=== PATIENT | female | born 1955 | race Two or more races ===

== ENCOUNTER 2018-09-12 11:10 | Outpatient (CLI) | payer OTHER | END 2018-09-12 11:21 | disposition home or self-care (01) | LOC: RAD 501 11:10 | DX: J44.1 Chronic obstructive pulmonary disease with (acute) exacerbation (principal) ==

== ENCOUNTER 2018-09-27 08:43 | Outpatient (CLI) | payer OTHER | END 2018-09-27 10:32 | disposition home or self-care (01) | LOC: LAB 08:43 | DX: D50.0 Iron deficiency anemia secondary to blood loss (chronic) (principal); E11.69 Type 2 diabetes mellitus with other specified complication; E78.00 Pure hypercholesterolemia, unspecified; E03.8 Other specified hypothyroidism; N39.0 Urinary tract infection, site not specified; Z12.11 Encounter for screening for malignant neoplasm of colon; K62.5 Hemorrhage of anus and rectum; R10.9 Unspecified abdominal pain; E55.9 Vitamin D deficiency, unspecified; E53.8 Deficiency of other specified B group vitamins ==

== ENCOUNTER 2018-09-27 11:24 | Outpatient (CLI) | payer OTHER | END 2018-09-27 11:28 | disposition home or self-care (01) | LOC: MAMO-SONO 11:24 | DX: N60.09 Solitary cyst of unspecified breast (principal); N63.10 Unspecified lump in the right breast, unspecified quadrant; N63.20 Unspecified lump in the left breast, unspecified quadrant; Z12.31 Encounter for screening mammogram for malignant neoplasm of breast ==

== ENCOUNTER → 2018-09-27 | Outpatient (CLI) | payer OTHER | END | disposition home or self-care (01) | LOC: NUCLEAR 13:00 | DX: M81.0 Age-related osteoporosis without current pathological fracture (principal) ==

== ENCOUNTER 2018-09-28 14:21 | Outpatient (CLI) | payer OTHER | END 2018-09-28 15:39 | disposition home or self-care (01) | LOC: LAB 14:21 | DX: D50.0 Iron deficiency anemia secondary to blood loss (chronic) (principal); E11.69 Type 2 diabetes mellitus with other specified complication; E78.00 Pure hypercholesterolemia, unspecified; E03.8 Other specified hypothyroidism; N39.0 Urinary tract infection, site not specified; Z12.11 Encounter for screening for malignant neoplasm of colon; K62.5 Hemorrhage of anus and rectum; R10.9 Unspecified abdominal pain; E55.9 Vitamin D deficiency, unspecified; E53.8 Deficiency of other specified B group vitamins ==

== ENCOUNTER 2018-10-06 15:14 | Outpatient (CLI) | payer OTHER | END 2018-10-06 15:21 | disposition home or self-care (01) | LOC: LAB 15:14 | DX: N20.0 Calculus of kidney (principal); Z51.81 Encounter for therapeutic drug level monitoring ==

== ENCOUNTER 2018-10-10 07:10 | Outpatient (CLI) | payer OTHER | END 2018-10-10 17:00 | disposition home or self-care (01) | LOC: MRI 07:10 | DX: R41.3 Other amnesia (principal) | CPT/HCPCS: 70553 ==

== ENCOUNTER 2018-10-24 07:49 | Outpatient (CLI) | payer OTHER | END 2018-10-24 17:00 | disposition home or self-care (01) | LOC: SONOGRAMA 07:49 → MAMO-SONO 08:15 → SONOGRAMA 17:00 | DX: M54.5 Low back pain (principal); E04.1 Nontoxic single thyroid nodule ==

== ENCOUNTER 2018-10-31 08:17 | Outpatient (CLI) | payer OTHER | END 2018-10-31 08:34 | disposition home or self-care (01) | LOC: LAB 08:17 | DX: E03.8 Other specified hypothyroidism (principal); R41.89 Other symptoms and signs involving cognitive functions and awareness; R41.3 Other amnesia; F03.90 Unspecified dementia, unspecified severity, without behavioral disturbance, psychotic disturbance, mood disturbance, and anxiety ==

== ENCOUNTER 2018-11-01 11:31 | Outpatient (CLI) | payer OTHER | END 2018-11-01 13:56 | disposition home or self-care (01) | LOC: NUCLEAR 11:31 | DX: M81.0 Age-related osteoporosis without current pathological fracture (principal) ==

== ENCOUNTER 2018-11-11 18:00 | Emergency (ER) | payer OTHER ==
[~2018-11-11] VITALS: Ht 167.6 cm; Wt 83.9 kg
[2018-11-11] MEDS ORDERED: PREVACID30 M1 (18:16)
== END 2018-11-11 22:44 | disposition home or self-care (01) ==
LOC: ER 18:00
DX: K29.70 Gastritis, unspecified, without bleeding (principal); R11.11 Vomiting without nausea; E86.0 Dehydration

== ENCOUNTER 2019-02-09 08:11 | Outpatient (CLI) | payer OTHER ==
[~2019-02-09 08:11] MED LIST: PREVACID30 M1
== END 2019-02-09 13:18 | disposition home or self-care (01) ==
LOC: SONOGRAMA 08:11
DX: E04.2 Nontoxic multinodular goiter (principal)

== ENCOUNTER 2019-02-10 10:26 | Outpatient (CLI) | payer OTHER | END 2019-02-10 10:29 | disposition home or self-care (01) | LOC: MRI 10:26 | DX: M51.26 Other intervertebral disc displacement, lumbar region (principal); M51.36 Other intervertebral disc degeneration, lumbar region | CPT/HCPCS: 72148 ==

== ENCOUNTER 2019-07-08 11:28 | Inpatient (IN) | payer OTHER ==
[~2019-07-08] VITALS: Ht 167.6 cm; Wt 83.9 kg
[2019-07-08] MEDS ORDERED: NABUMETONE750 MG (11:55)
--- NOTE | 2019-07-08 12:03 | NUR ---
PTE ALERTA Y ORIENTADA X 3 ESFERAS, REFIERE VOMITOS DESDE COLE EN LA TARDE, LUEGO DE ESTAR EN TOMANDO MEDICAMENTO EL CUAL NO RECUERDA EL NOMBRE, APROXIMADAMENTE 6 EPISODIOS. AL MOMENTO DE TRIAGE PRESENTA 2 VOMITOS COFFEE GROUND. SE UBICA EN AREA DE OBSERVACION.
--- NOTE | 2019-07-08 13:43 | NUR ---
PACIENTE ALERTA Y ORIENTADA EN LAS AMILCAR ESFERAS, SE DEQUAN MUESTRAS DE VIGNESH EN ANTEBRAZO DERECHO BAJO MEDIDAS ASEPTICAS, SE ADMNISTRAN MEDICAMENTOS ETHAN ORDEN MEDICA, PACIENTE ORIENTADA SOBRE PROCEDIMIENTOS Y MEDICACION VERBALIZA ENTENDER.
--- NOTE | 2019-07-08 15:35 | NUR ---
SE RECIBE PTE ALERTA Y ORIENTADA EN LAS 3 ESFERAS EN CAMA CON BARANDAS ELEVADAS TIMBRE ACCESIBLE. BUEN PATRON RESPIRATORIO. RECIBIENDO IV'S 0.9NSS BAJANDO A 100ML/HR POR VENOPUNCION EN BRAZO DERECHO AREA SHLOMO DE EDEMA Y ERITEMA. PENDIENTE CONSULTA CON DR.ESTEBAN LOPEZ. SE MANTIENE BAJO OBSERVACION POR CAMBIOS.
--- NOTE | 2019-07-08 20:32 | NUR ---
SE ORIENTA AL PACIENTE SOBRE MUESTRAS A SER COLECTADAS ETHAN ORDEN MEDICA. PACIENTE REFIERE ENTENDER. MISS. ROSANNA SCHMID, PROCEEDE A COLECTAR LAS MUESTRAS UTILIZANDO MEDIDAS ASEPTICAS. MUESTRAS SON ENVIADAS AL LABORATORIO.
[2019-07-12] MEDS ORDERED: CARAFATE1 GM PO (17:56)
[2019-07-12] MEDS ORDERED: PROTONIX40 MG PO (17:57)
== END 2019-07-12 18:56 | disposition home or self-care (01) | DRG 378 ==
LOC: ER 11:28 → SURH 20:13
PROVIDERS: ADMIT Internal Medicine
PROC: 0DH67UZ Insertion of Feeding Device into Stomach, Via Natural or Artificial Opening (ICD-10-PCS; 2019-07-08)
PROC: 3E0G76Z Introduction of Nutritional Substance into Upper GI, Via Natural or Artificial Opening (ICD-10-PCS; 2019-07-08)
PROC: 0DJ08ZZ Inspection of Upper Intestinal Tract, Via Natural or Artificial Opening Endoscopic (ICD-10-PCS; principal; 2019-07-11)
DX: K25.0 Acute gastric ulcer with hemorrhage (principal); E44.0 Moderate protein-calorie malnutrition; K92.0 Hematemesis; E86.0 Dehydration; E87.8 Other disorders of electrolyte and fluid balance, not elsewhere classified

== ENCOUNTER 2019-08-15 08:43 | Outpatient (CLI) | payer OTHER ==
[~2019-08-15 08:43] MED LIST changes: +CARAFATE1 GM PO; +NABUMETONE750 MG; +PROTONIX40 MG PO
== END 2019-08-15 08:48 | disposition home or self-care (01) ==
LOC: LAB 08:43
DX: D64.89 Other specified anemias (principal); I10 Essential (primary) hypertension; E11.9 Type 2 diabetes mellitus without complications; E78.00 Pure hypercholesterolemia, unspecified; N39.0 Urinary tract infection, site not specified; E03.8 Other specified hypothyroidism; E55.9 Vitamin D deficiency, unspecified; R19.5 Other fecal abnormalities

== ENCOUNTER → 2019-11-13 08:37 | Outpatient (CLI) | payer OTHER | END | disposition home or self-care (01) | LOC: LAB 08:37 | DX: D64.89 Other specified anemias (principal); I10 Essential (primary) hypertension; E11.9 Type 2 diabetes mellitus without complications; E78.00 Pure hypercholesterolemia, unspecified; N39.0 Urinary tract infection, site not specified; E03.8 Other specified hypothyroidism ==

== ENCOUNTER 2019-12-14 10:17 | Outpatient (CLI) | payer OTHER | END 2019-12-14 10:22 | disposition home or self-care (01) | LOC: SONOGRAMA 10:17 | PROVIDERS: ATTEND Internal Medicine | DX: E04.2 Nontoxic multinodular goiter (principal) ==

== ENCOUNTER → 2020-01-18 08:26 | Outpatient (CLI) | payer OTHER | END | disposition home or self-care (01) | LOC: MRI 08-10 11:15 → LAB 08:26 | DX: G60.3 Idiopathic progressive neuropathy (principal); M54.16 Radiculopathy, lumbar region ==

== ENCOUNTER 2020-01-24 10:44 | Outpatient (CLI) | payer OTHER | END 2020-01-24 10:53 | disposition home or self-care (01) | LOC: NUCLEAR 10:44 | PROVIDERS: ATTEND Internal Medicine | DX: I87.2 Venous insufficiency (chronic) (peripheral) (principal); I73.9 Peripheral vascular disease, unspecified ==

== ENCOUNTER 2020-01-31 09:17 | Outpatient (CLI) | payer OTHER | END 2020-01-31 10:19 | disposition home or self-care (01) | LOC: LAB 09:17 | PROVIDERS: ATTEND Obstetrics & Gynecology | DX: N39.0 Urinary tract infection, site not specified (principal) ==

== ENCOUNTER 2020-02-29 08:43 | Outpatient (CLI) | payer OTHER | END 2020-02-29 08:49 | disposition home or self-care (01) | LOC: SONOGRAMA 08:43 | PROVIDERS: ATTEND Pathology Anatomic Pathology & Clinical Pathology | DX: E04.2 Nontoxic multinodular goiter (principal) ==

== ENCOUNTER → 2020-05-21 | Outpatient (CLI) | payer OTHER | END | disposition home or self-care (01) | LOC: OFIC 805 10:15 | PROVIDERS: ATTEND Otolaryngology | DX: L29.8 Other pruritus (principal); H61.23 Impacted cerumen, bilateral; H90.41 Sensorineural hearing loss, unilateral, right ear, with unrestricted hearing on the contralateral side ==

== ENCOUNTER 2020-08-28 09:16 | Outpatient (CLI) | payer OTHER | END 2020-08-28 09:33 | disposition home or self-care (01) | LOC: LAB 09:16 | PROVIDERS: ATTEND Internal Medicine | DX: N39.0 Urinary tract infection, site not specified (principal); K21.9 Gastro-esophageal reflux disease without esophagitis; D50.0 Iron deficiency anemia secondary to blood loss (chronic); E78.00 Pure hypercholesterolemia, unspecified; K27.4 Chronic or unspecified peptic ulcer, site unspecified, with hemorrhage; M51.06 Intervertebral disc disorders with myelopathy, lumbar region; Z68.29 Body mass index [BMI] 29.0-29.9, adult; E04.2 Nontoxic multinodular goiter; I11.9 Hypertensive heart disease without heart failure; M54.5 Low back pain ==

== ENCOUNTER 2020-08-29 11:48 | Outpatient (CLI) | payer OTHER | END 2020-08-29 12:01 | disposition home or self-care (01) | LOC: LAB 11:48 | PROVIDERS: ATTEND Internal Medicine | DX: R19.5 Other fecal abnormalities (principal); Z12.11 Encounter for screening for malignant neoplasm of colon; E11.69 Type 2 diabetes mellitus with other specified complication ==

== ENCOUNTER 2021-07-01 10:13 | Outpatient (CLI) | payer OTHER | END 2021-07-01 14:37 | disposition home or self-care (01) | LOC: LAB 10:13 | DX: R41.89 Other symptoms and signs involving cognitive functions and awareness (principal); R41.3 Other amnesia; E03.8 Other specified hypothyroidism; F03.90 Unspecified dementia, unspecified severity, without behavioral disturbance, psychotic disturbance, mood disturbance, and anxiety ==

== ENCOUNTER 2022-01-29 09:32 | Outpatient (CLI) | payer OTHER | END 2022-01-29 09:36 | disposition home or self-care (01) | LOC: LAB 09:32 | DX: E53.8 Deficiency of other specified B group vitamins (principal) ==

== ENCOUNTER 2023-05-11 07:10 | Outpatient (CLI) | payer OTHER | END 2023-05-11 07:17 | disposition home or self-care (01) | LOC: NUCLEAR 07:10 | PROVIDERS: ATTEND Internal Medicine | DX: I25.118 Atherosclerotic heart disease of native coronary artery with other forms of angina pectoris (principal); R07.9 Chest pain, unspecified | CPT/HCPCS: 78452; 93017; A9500; J0153 ==

== ENCOUNTER 2023-07-30 14:20 | Outpatient (CLI) | payer OTHER | END 2023-07-30 14:24 | disposition home or self-care (01) | LOC: SONOGRAMA 14:20 | PROVIDERS: ATTEND Internal Medicine | DX: D37.030 Neoplasm of uncertain behavior of the parotid salivary glands (principal) ==

== ENCOUNTER 2023-08-11 14:32 | Outpatient (CLI) | payer OTHER ==
[2023-08-11 15:41] LABS: ALBUMIN 3.9 gm/dL (3.4-5.0); CALCIUM 8.9 mg/dL (8.5-10.1); CREATININE SERUM 0.88 mg/dL (0.55-1.02); GFR 63.71; PHOSPHOROUS 3.2 mg/dL (2.5-4.9); POTASSIUM 4.04 mEq/L (3.5-5.1)
== END 2023-08-11 14:45 | disposition home or self-care (01) ==
LOC: LAB 14:32
PROVIDERS: ATTEND Radiology Diagnostic Radiology
DX: P11 Other birth injuries to central nervous system (principal)

== ENCOUNTER 2023-08-12 09:45 | Outpatient (CLI) | payer OTHER | END 2023-08-12 09:55 | disposition home or self-care (01) | LOC: TOM 09:45 | PROVIDERS: ATTEND Otolaryngology | DX: D11.0 Benign neoplasm of parotid gland (principal) | CPT/HCPCS: 70491; Q9965 ==

== ENCOUNTER 2023-08-23 18:18 | Emergency (ER) | payer OTHER ==
[~2023-08-23] VITALS: Ht 165.1 cm; Wt 83.9 kg
[2023-08-23] MEDS ORDERED: MYRBETRIQ50 MG PO (18:29)
[2023-08-23] MEDS ORDERED: DULOXETINE HCL40 MG (18:29)
[2023-08-23] MEDS ORDERED: TROSPIUM CHLORI20 MG PO (18:30)
[2023-08-23] MEDS ORDERED: CRESTOR10 MG PO (18:30)
[2023-08-23] MEDS ORDERED: GENTAMICIN SULFATE 0.15 MG/DR DROPS 5ML OP STA (19:04)
[2023-08-23] MEDS ORDERED: TETRACAINE HCL 20 DR/ML DROPS OP STA (19:04)
== END 2023-08-23 19:27 | disposition home or self-care (01) ==
LOC: ER 18:18
DX: H11.31 Conjunctival hemorrhage, right eye (principal)

== ENCOUNTER 2023-09-03 10:57 | Outpatient (CLI) | payer OTHER ==
[~2023-09-03 10:57] MED LIST changes: +CRESTOR10 MG PO; +DULOXETINE HCL40 MG; +MYRBETRIQ50 MG PO; +TROSPIUM CHLORI20 MG PO
[2023-09-03 11:59] LABS: HEMATOCRIT 35.1 % (36.0-45.00); HEMOGLOBIN 12.1 g/dL (12.0-15.00); MEAN CORPUSCULAR HEMOGLOBIN 30.6 pg (27.00-32.0); MEAN CORPUSCULAR HGB CONC 34.4 g/dl (32.0-36.0); PLATELET COUNT 225 K/uL (150-450); RED BLOOD COUNT 3.95 M/uL (4.00-6.00); RED CELL DISTRIBUTION WIDTH 13.8 % (11.5-14.5)
[2023-09-03 12:34] LABS: ALBUMIN 3.9 gm/dL (3.4-5.0); BILIRUBIN TOTAL 0.69 mg/dL (0.3-1.2); CALCIUM 8.9 mg/dL (8.5-10.1); CHOL HDL RATIO 2.1 (0-5.0); CREATININE SERUM 0.75 mg/dL (0.55-1.02); GFR 76.62; POTASSIUM 3.94 mEq/L (3.5-5.1); TOTAL PROTEIN 6.9 gm/dL (6.4-8.2); TSH 0.779 uIU/mL (0.358-3.74)
[2023-09-03 13:14] LABS: PH,URINE 7.5 (5.0-8.0); URINE APPEARANCE Clear; URINE BILIRRUBIN Negative (NEGATIVE); URINE BLOOD Negative; URINE COLOR Yellow; URINE GLUCOSE Negative (NEGATIVE); URINE LEUKOCYTE Negative; URINE NITRATE Negative; URINE PROTEIN Negative (NEGATIVE); URINE UROBILINOGEN 0.2 E.U./dl
[2023-09-03 13:18] LABS: URINE BACTERIA 60.4 uL (0.0-1933); URINE EPITHELIAL CELLS 4.7 uL (0.0-38.8); URINE RBC 18.3 uL (0.0-20.8)
[2023-09-03 13:44] LABS: URINE WBC 1.5 uL (0.0-23.2)
== END 2023-09-03 11:03 | disposition home or self-care (01) ==
LOC: LAB 10:57
PROVIDERS: ATTEND Obstetrics & Gynecology Maternal & Fetal Medicine
DX: E03.8 Other specified hypothyroidism (principal); D63.8 Anemia in other chronic diseases classified elsewhere; N30.90 Cystitis, unspecified without hematuria; R73.9 Hyperglycemia, unspecified; K92.1 Melena; Z12.11 Encounter for screening for malignant neoplasm of colon; E55.9 Vitamin D deficiency, unspecified

== ENCOUNTER 2023-09-03 12:15 | Outpatient (CLI) | payer OTHER | END 2023-09-03 12:20 | disposition home or self-care (01) | LOC: MAMO-SONO 12:15 | PROVIDERS: ATTEND Obstetrics & Gynecology Maternal & Fetal Medicine | DX: N63.0 Unspecified lump in unspecified breast (principal); Z12.31 Encounter for screening mammogram for malignant neoplasm of breast; N64.4 Mastodynia; N60.11 Diffuse cystic mastopathy of right breast; R10.2 Pelvic and perineal pain; K11.8 Other diseases of salivary glands ==

== ENCOUNTER 2023-09-15 12:51 | Outpatient (CLI) | payer OTHER | END 2023-09-15 12:55 | disposition home or self-care (01) | LOC: RAD 12:51 | PROVIDERS: ATTEND Internal Medicine Pulmonary Disease | DX: R06.02 Shortness of breath (principal); G47.33 Obstructive sleep apnea (adult) (pediatric); E66.01 Morbid (severe) obesity due to excess calories ==

== ENCOUNTER 2023-09-29 13:53 | Outpatient (CLI) | payer OTHER | END 2023-09-29 13:55 | disposition home or self-care (01) | LOC: NUCLEAR 13:53 | PROVIDERS: ATTEND Obstetrics & Gynecology Maternal & Fetal Medicine | DX: M81.0 Age-related osteoporosis without current pathological fracture (principal) ==

== ENCOUNTER 2023-09-29 15:35 | Outpatient (CLI) | payer OTHER ==
[2023-09-29 16:04] LABS: URINE APPEARANCE Turbid; URINE BILIRRUBIN Negative (NEGATIVE); URINE BLOOD Small; URINE COLOR Dark Yellow; URINE GLUCOSE Negative (NEGATIVE); URINE LEUKOCYTE Large; URINE NITRATE Positive; URINE PROTEIN Trace (NEGATIVE)
[2023-09-29 16:07] LABS: URINE EPITHELIAL CELLS 5.7 uL (0.0-38.8); URINE RBC 33.1 uL (0.0-20.8); URINE WBC 3463.8 uL (0.0-23.2)
[2023-09-29 16:13] LABS: URINE BACTERIA > 9821.2 uL (0.0-1933)
== END 2023-09-29 15:46 | disposition home or self-care (01) ==
LOC: LAB 15:35
PROVIDERS: ATTEND Internal Medicine
DX: N39.0 Urinary tract infection, site not specified (principal)

== ENCOUNTER 2024-09-04 11:14 | Outpatient (CLI) | payer OTHER | END 2024-09-04 11:21 | disposition home or self-care (01) | LOC: MAMO-SONO 11:14 | PROVIDERS: ATTEND Obstetrics & Gynecology Maternal & Fetal Medicine | DX: N63.0 Unspecified lump in unspecified breast (principal); N64.4 Mastodynia; N60.11 Diffuse cystic mastopathy of right breast; Z12.31 Encounter for screening mammogram for malignant neoplasm of breast; R10.2 Pelvic and perineal pain ==

== ENCOUNTER 2024-09-28 12:42 | Outpatient (CLI) | payer OTHER ==
[2024-09-28 14:04] LABS: CREATININE SERUM 0.83 mg/dL (0.55-1.02); GFR 67.96
== END 2024-09-28 12:43 | disposition home or self-care (01) ==
LOC: LAB 12:42
PROVIDERS: ATTEND Radiology Diagnostic Radiology
DX: R41.82 Altered mental status, unspecified (principal)

== ENCOUNTER 2024-09-29 07:05 | Outpatient (CLI) | payer OTHER | END 2024-09-29 07:12 | disposition home or self-care (01) | LOC: MRI 07:05 | DX: R41.82 Altered mental status, unspecified (principal) | CPT/HCPCS: 70553; Q9965; 70552 ==

== ENCOUNTER → 2024-10-16 | Outpatient (CLI) | payer OTHER | END | disposition home or self-care (01) | LOC: RAD 11:33 | PROVIDERS: ATTEND Internal Medicine | DX: S29.9XXA Unspecified injury of thorax, initial encounter (principal); S49.92XA Unspecified injury of left shoulder and upper arm, initial encounter; S59.902A Unspecified injury of left elbow, initial encounter; S59.912A Unspecified injury of left forearm, initial encounter ==

== ENCOUNTER → 2024-10-31 06:52 | Outpatient (CLI) | payer OTHER ==
[2024-10-31 07:55] LABS: HEMATOCRIT 36.5 % (36.0-45.00); HEMOGLOBIN 12.3 g/dL (12.0-15.00); MEAN CELL VOLUME 89.4 fL (80.00-100.00); MEAN CORPUSCULAR HEMOGLOBIN 30.1 pg (27.00-32.0); MEAN CORPUSCULAR HGB CONC 33.7 g/dl (32.0-36.0); PLATELET COUNT 256 K/uL (150-450); RED BLOOD COUNT 4.08 M/uL (4.00-6.00); RED CELL DISTRIBUTION WIDTH 13.8 % (11.5-14.5)
[2024-10-31 08:50] LABS: ALBUMIN 3.8 gm/dL (3.4-5.0); BILIRUBIN TOTAL 0.48 mg/dL (0.3-1.2); CALCIUM 9.2 mg/dL (8.5-10.1); CREATININE SERUM 0.89 mg/dL (0.55-1.02); GFR 62.7; POTASSIUM 3.95 mEq/L (3.5-5.1); TOTAL PROTEIN 6.8 gm/dL (6.4-8.2); TSH 0.946 uIU/mL (0.358-3.74)
[2024-10-31 12:29] LABS: URINE APPEARANCE Clear; URINE BILIRRUBIN Negative (NEGATIVE); URINE BLOOD Negative; URINE COLOR Yellow; URINE GLUCOSE Negative (NEGATIVE); URINE KETONE Negative (NEGATIVE); URINE LEUKOCYTE Negative; URINE NITRATE Negative; URINE PROTEIN Negative (NEGATIVE)
[2024-10-31 12:34] LABS: URINE BACTERIA 36.7 uL (0.0-1933); URINE EPITHELIAL CELLS 7.2 uL (0.0-38.8); URINE RBC 15.4 uL (0.0-20.8)
[2024-10-31 12:38] LABS: URINE CAST 1.17 uL (0.0-1.40)
== END | disposition home or self-care (01) ==
LOC: LAB 06:52
PROVIDERS: ATTEND Internal Medicine
DX: D64.9 Anemia, unspecified (principal); E11.9 Type 2 diabetes mellitus without complications; E78.2 Mixed hyperlipidemia; N39.0 Urinary tract infection, site not specified; E11.65 Type 2 diabetes mellitus with hyperglycemia; E03.8 Other specified hypothyroidism

== ENCOUNTER 2024-11-13 09:58 | Outpatient (CLI) | payer OTHER | END 2024-11-13 10:00 | disposition home or self-care (01) | LOC: RAD 09:58 | PROVIDERS: ATTEND Orthopaedic Surgery | DX: S52.125A Nondisplaced fracture of head of left radius, initial encounter for closed fracture (principal) ==

== ENCOUNTER 2024-11-24 07:09 | Outpatient (CLI) | payer OTHER | END 2024-11-24 07:12 | disposition home or self-care (01) | LOC: MRI 07:09 | PROVIDERS: ATTEND Neuromusculoskeletal Medicine & OMM | DX: R41.3 Other amnesia (principal) | CPT/HCPCS: 70551 ==

== ENCOUNTER 2024-12-07 09:51 | Outpatient (CLI) | payer OTHER ==
[2024-12-07 10:51] LABS: BASO % 1.1 % (0.1-1.2); EOS # 0.08 (0.04-0.54); EOS % 1.8 % (0.7-7.0); HEMATOCRIT 36.3 % (34.1-44.9); HEMOGLOBIN 11.7 g/dL (11.2-15.7); LYMPH # 1.19 (1.18-3.74); LYMPH % 27.2 % (19.3-53.1); MEAN CORPUSCULAR HEMOGLOBIN 29.3 pg (25.6-32.2); MONO # 0.38 (0.24-0.82); MONO % 8.7 % (4.7-12.5); NEUT # 2.67 (1.56-6.13); PLATELET COUNT 240 K/uL (163-369); RED CELL DISTRIBUTION WIDTH 14.1 % (11.6-14.4)
[2024-12-07 12:10] LABS: ALBUMIN 3.5 gm/dL (3.4-5.0); BILIRUBIN TOTAL 0.59 mg/dL (0.3-1.2); CREATININE SERUM 0.75 mg/dL (0.55-1.02); GFR 76.39; GLOBULINA 3.2 G/DL (2.4-3.5); POTASSIUM 4.11 mEq/L (3.5-5.1); TOTAL PROTEIN 6.7 gm/dL (6.4-8.2)
== END 2024-12-07 09:56 | disposition home or self-care (01) ==
LOC: LAB 09:51
PROVIDERS: ATTEND Internal Medicine Gastroenterology
DX: R10.12 Left upper quadrant pain (principal); Z86.0101 Personal history of adenomatous and serrated colon polyps; K21.9 Gastro-esophageal reflux disease without esophagitis

== ENCOUNTER 2024-12-11 07:09 | Outpatient (CLI) | payer OTHER | END 2024-12-11 07:11 | disposition home or self-care (01) | LOC: TOM 07:09 | PROVIDERS: ATTEND Internal Medicine Gastroenterology | DX: R10.12 Left upper quadrant pain (principal) | CPT/HCPCS: 74178; Q9965 ==

== ENCOUNTER 2025-01-16 13:01 | Outpatient (CLI) | payer OTHER ==
[~2025-01-16 13:01] MED LIST changes: +ADULT LOW DOSE81 M1 PO; +LEVOTHYROXINE50 MCG PO; +MECLIZINE HCL12.5 MG PO
== END 2025-01-16 13:04 | disposition home or self-care (01) ==
LOC: TOM 13:01
PROVIDERS: ATTEND Internal Medicine
DX: R10.9 Unspecified abdominal pain (principal)
CPT/HCPCS: 74177; Q9965

== ENCOUNTER 2025-01-26 12:20 | Outpatient (CLI) | payer OTHER | END 2025-01-26 12:24 | disposition home or self-care (01) | LOC: RAD 12:20 | PROVIDERS: ATTEND Orthopaedic Surgery | DX: M25.532 Pain in left wrist (principal); S52.125D Nondisplaced fracture of head of left radius, subsequent encounter for closed fracture with routine healing ==

== ENCOUNTER 2025-04-10 08:08 | Outpatient (CLI) | payer OTHER ==
[2025-04-10 08:53] LABS: BASO % 0.9 % (0.1-1.2); EOS # 0.07 (0.04-0.54); EOS % 1.6 % (0.7-7.0); LYMPH # 1.19 (1.18-3.74); LYMPH % 26.7 % (19.3-53.1); MEAN PLATELET VOLUME 11.90 fl (9.4-12.4); MONO # 0.34 (0.24-0.82); MONO % 7.6 % (4.7-12.5); NEUT # 2.81 (1.56-6.13); NEUT % 63.0 % (34.0-71.1); RED CELL DISTRIBUTION WIDTH 13.4 % (11.6-14.4)
[2025-04-10 09:16] LABS: ERYTHROCYTE SEDIMENTATION RATE 21 mm/hr (0-30)
[2025-04-10 09:42] LABS: ALT/SGPT 22 U/L (12-78); AST/SGOT 16 U/L (15-37); BILIRUBIN TOTAL 0.53 mg/dL (0.3-1.2); BUN CREA RATIO 18 (7.0-25.0); CREATININE SERUM 0.87 mg/dL (0.55-1.02); GFR 64.37; GLOBULINA 2.9 G/DL (2.4-3.5); GLUCOSE FASTING 111 mg/dL (65-100); OSMOLALITY SERUM 287 MOSM/KG (275-295); TSH 1.920 uIU/mL (0.358-3.74)
[2025-04-11 11:08] LABS: CALCIUM IONIZED 5.0 mg/dL (4.5-5.6)
== END 2025-04-10 08:12 | disposition home or self-care (01) ==
LOC: LAB 08:08
PROVIDERS: ATTEND Orthopaedic Surgery
DX: D64.9 Anemia, unspecified (principal); M06.4 Inflammatory polyarthropathy; M06.89 Other specified rheumatoid arthritis, multiple sites; M32.8 Other forms of systemic lupus erythematosus; E55.9 Vitamin D deficiency, unspecified; M85.9 Disorder of bone density and structure, unspecified; E56.1 Deficiency of vitamin K; E21.3 Hyperparathyroidism, unspecified; E88.89 Other specified metabolic disorders; M81.8 Other osteoporosis without current pathological fracture

== ENCOUNTER 2025-04-25 15:16 | Emergency (ER) | payer OTHER ==
[~2025-04-25] VITALS: Ht 167.6 cm; Wt 88.5 kg
[2025-04-25] MEDS ORDERED: ACETAMINOPHEN 500 MG GEL..CAP PO ONE (17:45)
[2025-04-25] MEDS ORDERED: 0.9 % SODIUM CHLORIDE 1,000 ML IV SCH (17:45)
[2025-04-25] MEDS ORDERED: FAMOTIDINE/PF 20 MG/2 ML VIAL IV ONE (17:45)
[2025-04-25] MEDS ORDERED: ONDANSETRON HCL 2 MG/ML VIAL IV ONE (17:45)
[2025-04-25 19:51] LABS: BASO % 0.6 % (0.1-1.2); EOS # 0.09 (0.04-0.54); EOS % 1.4 % (0.7-7.0); LYMPH # 2.13 (1.18-3.74); LYMPH % 32.5 % (19.3-53.1); MEAN PLATELET VOLUME 12.30 fl (9.4-12.4); MONO # 0.46 (0.24-0.82); MONO % 7.0 % (4.7-12.5); NEUT # 3.82 (1.56-6.13); NEUT % 58.2 % (34.0-71.1); RED CELL DISTRIBUTION WIDTH 13.4 % (11.6-14.4)
[2025-04-25 19:54] LABS: ERYTHROCYTE SEDIMENTATION RATE 64 mm/hr (0-30)
[2025-04-25 20:16] LABS: COVID-19 AG NEGATIVE (NEGATIVE)
[2025-04-25 20:35] LABS: ALT/SGPT 22 U/L (12-78); AST/SGOT 20 U/L (15-37); BILIRUBIN TOTAL 0.41 mg/dL (0.3-1.2); BUN CREA RATIO 23 (7.0-25.0); CREATININE SERUM 0.78 mg/dL (0.55-1.02); GFR 73.01; GLOBULINA 3.6 G/DL (2.4-3.5); GLUCOSE FASTING 111 mg/dL (65-100); OSMOLALITY SERUM 284 MOSM/KG (275-295)
[2025-04-25 21:02] LABS: URINE APPEARANCE Clear; URINE BILIRRUBIN Negative (NEGATIVE); URINE BLOOD Negative; URINE COLOR Yellow; URINE GLUCOSE Negative (NEGATIVE); URINE KETONE Trace (NEGATIVE); URINE LEUKOCYTE Negative; URINE NITRATE Negative; URINE PROTEIN Negative (NEGATIVE); URINE UROBILINOGEN 1.0 E.U./dl
[2025-04-25 21:06] LABS: URINE BACTERIA 545.9 uL (0.0-1933); URINE CAST 3.81 uL (0.0-1.40); URINE EPITHELIAL CELLS 12.9 uL (0.0-38.8); URINE RBC 23.0 uL (0.0-20.8); URINE WBC 8.3 uL (0.0-23.2)
[2025-04-25] MEDS ORDERED: PEPCID AC20 MG PO (23:31)
[2025-04-25] MEDS ORDERED: PROTONIX40 MG PO (23:31)
[2025-04-25] MEDS ORDERED: BUTALB-ASPIRIN1 EACH PO (23:31)
== END 2025-04-26 00:14 | disposition home or self-care (01) ==
LOC: ER 15:16
PROVIDERS: Student in an Organized Health Care Education/Training Program
DX: K44.9 Diaphragmatic hernia without obstruction or gangrene (principal); N39.0 Urinary tract infection, site not specified; G43.909 Migraine, unspecified, not intractable, without status migrainosus; E03.8 Other specified hypothyroidism; R10.9 Unspecified abdominal pain; Z20.822 Contact with and (suspected) exposure to COVID-19
CPT/HCPCS: 36415; 70450; 74177; 96365; 96366; 99284; J7030; Q9965

== ENCOUNTER 2025-05-09 14:46 | Outpatient (CLI) | payer OTHER ==
[~2025-05-09 14:46] MED LIST changes: +BUTALB-ASPIRIN1 EACH PO; +PEPCID AC20 MG PO
== END 2025-05-09 14:59 | disposition home or self-care (01) ==
LOC: SONOGRAMA 14:46
PROVIDERS: ATTEND Orthopaedic Surgery
DX: M75.41 Impingement syndrome of right shoulder (principal); M25.562 Pain in left knee; M25.511 Pain in right shoulder